=== PATIENT | female | born 1940 | race Two or more races ===

== ENCOUNTER 2018-11-10 12:13 | Emergency (ER) | payer MEDICARE, BC ==
[~2018-11-10] VITALS: Ht 149.9 cm; Wt 88.5 kg
--- NOTE | 2018-11-10 12:31 | NUR ---
[id number], FROM HOME, C/O R SIDED WEAKNESS WORSE TODAY, S/P FALL +KO, PAIN ON THE NECK AND R ARM. STATES WEAKNESS MOSTLY IN RLE. ALSO HAVING SOME DIFFICULTY SPEAKING. NO ACUTE DISTRESS NOTED. AOX4, VSS, RR EVEN AND UNLABORED ON RA. AMBULATORY WITH ASSISTANCE. MADE COMFORTABLE AND READY FOR EVAL.
[2018-11-10 12:50] LABS: BASOPHILS % (AUTO) 0.4 % (0.0-2.0); HEMATOCRIT 38 % (33-45); HEMOGLOBIN 12.9 g/dL (11.5-14.8); LYMPHOCYTES # (AUTO) 1.8 /CMM (0.8-4.8); LYMPHOCYTES % (AUTO) 21.8 % (20.0-44.0); MEAN CORPUSCULAR HGB CONC 34 g/dl (31.0-36.0); MEAN CORPUSCULAR VOLUME 94 fL (82-100); MONOCYTES % (AUTO) 12.3 % (2.0-12.0); NEUTROPHILS # (AUTO) 5.3 /CMM (1.8-8.9); NEUTROPHILS % (AUTO) 63.5 % (43.0-81.0); PLATELET COUNT (AUTO) 151 /CMM (150-450); RED BLOOD CELL COUNT(AUTO) 4.07 MIL/uL (4.0-5.2); WHITE BLOOD COUNT (AUTO) 8.4 K/uL (4.3-11.0)
[2018-11-10 12:57] LABS: CARBON DIOXIDE 25 mmol/L (21-32); CHLORIDE 106 mmol/L (98-107); CREATININE 0.8 mg/dL (0.6-1.3); GLUCOSE 157 mg/dL (74-106); POTASSIUM 3.9 mmol/L (3.5-5.1); SODIUM SERUM 139 mmol/L (136-145); UREA NITROGEN, BLOOD 26 mg/dL (7-18)
[2018-11-10 13:02] LABS: ALANINE AMINOTRANSFERASE 26 U/L (12-78); ALBUMIN 3.5 g/dL (3.4-5.0); ALKALINE PHOSPHATASE 90 U/L (46-116); ASPARTATE AMINOTRANSFERASE 15 U/L (15-37); BILIRUBIN,DIRECT 0.1 mg/dL (0.0-0.2); BILIRUBIN,TOTAL 0.3 mg/dL (0.2-1.0); TOTAL PROTEIN, SERUM 7.1 g/dL (6.4-8.2)
--- NOTE | 2018-11-10 13:17 | NUR ---
MEASURER MACHINE AT BEDSIDE, ASSISTING PT TO USE BEDPAN
--- NOTE | 2018-11-10 13:30 | NUR ---
URINE SENT TO STAT LAB
--- NOTE | 2018-11-10 13:41 | NUR ---
PT TAKEN TO CT VIA [facility]
[2018-11-10 13:45] LABS: APPEARANCE,URINE Clear (CLEAR); BILIRUBIN,URINE Negative (NEGATIVE); BLOOD, URINE Trace-lysed Ery/uL (NEGATIVE); COLOR,URINE Yellow (YELLOW); KETONES,URINE Negative (NEGATIVE); LEUKOCYTE ESTERASE ,URINE Negative (NEGATIVE); NITRITE, URINE Negative (NEGATIVE); PROTEIN,URINE Negative (NEGATIVE); UGLUCOSE Negative (NEGATIVE); UROBILINOGEN,URINE 0.2 EU/dL (0.2)
[2018-11-10 13:54] LABS: BACTERIA,URINE Rare /HPF (None Seen); SQUAMOUS EPITHELIAL CELL,UR Moderate /HPF (None Seen)
--- NOTE | 2018-11-10 15:04 | NUR ---
PT RESTING COMFORTABLY IN BED, DAUGHTER AT BEDSIDE. NO COMPLAINTS AT THIS TIME. PT SET FOR DISCHARGE
--- NOTE | 2018-11-10 15:19 | NUR ---
CALLED [facility] FOR TRANSPORT ETA OF 1600 WAS GIVEN. TRIP#[id number]
--- NOTE | 2018-11-10 16:19 | NUR ---
REPORT GIVEN TO [facility] EMT FOR TRANSPORT
--- NOTE | 2018-11-10 16:32 | NUR ---
IV removed. Catheter intact and site benign. Pressure and 4x4 applied to site. No bleeding noted.Patient discharged to home in stable condition. Written and verbal after care instructions given. Patient verbalizes understanding of instruction.
[2018-11-10 16:34] VITALS: BP 138/76
== END 2018-11-10 16:36 | disposition home or self-care (01) ==
LOC: ER 12:13
DX: R53.1 Weakness (principal); R47.01 Aphasia; I10 Essential (primary) hypertension; R40.4 Transient alteration of awareness; I48.91 Unspecified atrial fibrillation; E78.5 Hyperlipidemia, unspecified; K21.9 Gastro-esophageal reflux disease without esophagitis; Z88.6 Allergy status to analgesic agent; Z86.73 Personal history of transient ischemic attack (TIA), and cerebral infarction without residual deficits; W18.39XA Other fall on same level, initial encounter; Y93.89 Activity, other specified; Y92.89 Other specified places as the place of occurrence of the external cause; Y99.8 Other external cause status
CPT/HCPCS: 36415; 70450-TC; 71045-TC; 72170-TC; 80048-TC; 80076-TC; 81000-TC; 84484-TC; 85025-TC